=== PATIENT | female | born 1965 | race African-American/Black ===

== ENCOUNTER 2022-09-09 11:06 | Inpatient (IN) | payer BC, OTHER ==
[~2022-09-09] VITALS: Ht 157.5 cm; Wt 51.6 kg
[2022-09-09 13:27] LABS: Basophils # (auto) 0 10 ^3/uL (0-0.2); Eosinophils # (auto) 0 10 ^3/uL (0-0.8); Eosinophils % (auto) 0.5 % (0.0-7.0); Hemoglobin 20.4 g/dL (12.2-16.2); Monocytes # (auto) 0.7 10 ^3/uL (0-1.3)
[2022-09-09 13:30] LABS: Basophils % (auto) 0.7 % (0.0-2.0); Lymphocytes # (auto) 1.8 10 ^3/uL (0.4-5.4); Lymphocytes % (auto) 37.6 % (10.0-50.0); Mean Corpuscular Hgb Conc. 33.6 g/dL (32.0-36.0); Mean Corpuscular Volume 104.2 fL (80.0-100.0); Monocytes % (auto) 14.1 % (0.0-12.0); Neutrophils # (auto) 2.3 10 ^3/uL (1.6-8.6); Neutrophils % (auto) 47.1 % (37.0-80.0); Nucleated Red Blood Cells % 0.5 %; Red Blood Cells 5.83 10^6/uL (4.0-5.20); Red Cell Distribution Width 14.7 % (11.8-14.3); White Blood Cell 4.8 10^3/uL (4.4-10.8)
[2022-09-09 13:32] LABS: Hematocrit 60.8 % (36.0-46.0)
[2022-09-09 13:37] LABS: INR 1.32 (0.9-1.15); Partial Thromboplastin Time 30.1 sec (24.6-33.4)
[2022-09-09] MEDS ORDERED: hydrALAZINE HCL 20 MG/ML VL IV ONE (13:45)
[2022-09-09] MEDS ORDERED: FUROSEMIDE 20 MG/2 ML VIAL IV ONE (13:45)
[2022-09-09 13:47] LABS: Potassium 4.3 mmol/L (3.5-5.1)
[2022-09-09 13:53] LABS: Albumin 3.2 g/dL (3.4-5.0); BUN/Creatinine Ratio 22.6 (10.0-20.0); Bilirubin, Total 0.5 mg/dL (0.2-1.0); Calcium 8.5 mg/dL (8.5-10.1); Magnesium 2.2 mg/dL (1.6-2.6); Total Protein 6.1 g/dL (6.4-8.2)
[2022-09-09] MEDS ORDERED: ASPirin 325 MG TAB PO ONE (14:00)
[2022-09-09 14:21] LABS: Urine Bacteria NONE SEEN /hpf (None Seen); Urine Blood 1+ /uL (Negative); Urine Hyaline Cast FEW /lpf (0 - 2); Urine Specific Gravity 1.012 (1.001-1.035); Urine WBC 1 /hpf (0 - 5)
[2022-09-09] MEDS ORDERED: ACETAMINOPHEN 325 MG TAB PO PRN (17:45)
[2022-09-09] MEDS ORDERED: amLODIPine BESYLATE 5 MG TAB PO ONE (17:45)
[2022-09-09] MEDS ORDERED: NITROGLYCERIN 0.4 MG SL TAB SL PRN (17:45)
[2022-09-09] MEDS ORDERED: hydrALAZINE HCL 20 MG/ML VL IV PRN (17:45)
[2022-09-09] MEDS ORDERED: MORPHINE SULFATE INJ 2 MG/ml SYRG IV PRN (17:45)
[2022-09-09 18:29] LABS: Cholesterol 113 mg/dL (< 200); Triglycerides 52 mg/dL (< 150)
[2022-09-09] MEDS ORDERED: ALBUTEROL SULF 2.5 MG/0.5ML(0.5%) NEB SOLN NEB PRN (18:30)
[2022-09-09 18:32] LABS: HDL Cholesterol 51 mg/dL (40-59); LDL Cholesterol 67 mg/dL (< 100)
[2022-09-09 18:47] VITALS: BP 136/84
[2022-09-10] MEDS: ALBUTEROL SULF 2.5 MG/0.5ML(0.5%) NEB SOLN NEB SCH ×5 (00:14→18:36)
[2022-09-10] MEDS: IPRATROPIUM BROM 0.5 MG/2.5ML INH SOL NEB SCH ×5 (00:15→18:37)
[2022-09-10 05:00] VITALS: BP 142/74
[2022-09-10 08:10] VITALS: BP 136/77
[2022-09-10 08:30] VITALS: BP 136/77
[2022-09-10 08:46] LABS: Basophils # (auto) 0 10 ^3/uL (0-0.2); Basophils % (auto) 0.7 % (0.0-2.0); Eosinophils # (auto) 0 10 ^3/uL (0-0.8); Hemoglobin 19.7 g/dL (12.2-16.2); Lymphocytes # (auto) 1.3 10 ^3/uL (0.4-5.4); Monocytes # (auto) 0.8 10 ^3/uL (0-1.3); Neutrophils # (auto) 2.5 10 ^3/uL (1.6-8.6); Nucleated Red Blood Cells % 0.2 %
[2022-09-10 08:47] LABS: Eosinophils % (auto) 0.4 % (0.0-7.0); Lymphocytes % (auto) 27.2 % (10.0-50.0); Mean Corpuscular Hemoglobin 35.3 pg (28.0-32.0); Mean Corpuscular Hgb Conc. 33.7 g/dL (32.0-36.0); Mean Corpuscular Volume 104.9 fL (80.0-100.0); Monocytes % (auto) 16.7 % (0.0-12.0); Red Blood Cells 5.59 10^6/uL (4.0-5.20); Red Cell Distribution Width 14.7 % (11.8-14.3); White Blood Cell 4.6 10^3/uL (4.4-10.8)
[2022-09-10 08:52] LABS: Hematocrit 58.6 % (36.0-46.0)
[2022-09-10 10:18] LABS: Potassium 4.4 mmol/L (3.5-5.1)
[2022-09-10 10:19] LABS: BUN/Creatinine Ratio 23.5 (10.0-20.0)
[2022-09-10 10:21] LABS: Albumin 2.6 g/dL (3.4-5.0); Bilirubin, Total 0.7 mg/dL (0.2-1.0); Calcium 8.1 mg/dL (8.5-10.1)
[2022-09-10] MEDS: FUROSEMIDE 20 MG/2 ML VIAL IV SCH (10:23)
[2022-09-10] MEDS: amLODIPine BESYLATE 5 MG TAB PO SCH (10:23)
[2022-09-10] MEDS: ENOXAPARIN SOD 40 MG/0.4 ML SYRINGE SC SCH (10:24)
[2022-09-10 12:30] VITALS: BP 149/91
[2022-09-10] MEDS ORDERED: IOHEXOL 350 MG/ML 100ML IJ ONE (15:40)
[2022-09-10 16:58] VITALS: BP 111/62
[2022-09-10 22:00] VITALS: BP 133/78
[2022-09-11] MEDS: ALBUTEROL SULF 2.5 MG/0.5ML(0.5%) NEB SOLN NEB SCH ×5 (00:48→23:20)
[2022-09-11] MEDS: IPRATROPIUM BROM 0.5 MG/2.5ML INH SOL NEB SCH ×5 (00:48→23:21)
[2022-09-11 05:00] VITALS: BP 120/70
[2022-09-11 07:55] VITALS: BP 131/71
[2022-09-11 09:00] VITALS: BP 131/71
[2022-09-11] MEDS: FUROSEMIDE 20 MG/2 ML VIAL IV SCH (09:46)
[2022-09-11] MEDS: amLODIPine BESYLATE 5 MG TAB PO SCH (09:47)
[2022-09-11] MEDS: ENOXAPARIN SOD 40 MG/0.4 ML SYRINGE SC SCH (09:47)
[2022-09-11 15:33] LABS: Amphetamine Screen, Urine NEGATIVE (NEGATIVE); Barbiturate Scree,Urine NEGATIVE (NEGATIVE); Benzodiazephine Screen, Urine NEGATIVE (NEGATIVE); Cannabinoid Screen, Urine POSITIVE (NEGATIVE)
[2022-09-11 15:40] LABS: Cocaine Screen, Urine NEGATIVE (NEGATIVE); Opiate Scree,Urine NEGATIVE (NEGATIVE); Phencyclidine Screen, Urine NEGATIVE (NEGATIVE)
[2022-09-11 16:42] VITALS: BP 123/63
[2022-09-11 22:00] VITALS: BP 112/67
[2022-09-12 05:00] VITALS: BP 127/71
[2022-09-12] MEDS: IPRATROPIUM BROM 0.5 MG/2.5ML INH SOL NEB SCH ×2 (06:25→13:12)
[2022-09-12] MEDS: ALBUTEROL SULF 2.5 MG/0.5ML(0.5%) NEB SOLN NEB SCH ×2 (06:25→13:12)
[2022-09-12 08:15] VITALS: BP 121/75
[2022-09-12 08:30] VITALS: BP 121/75
[2022-09-12] MEDS ORDERED: METOPROLOL SUCCINATE XL 50 MG TAB PO SCH (10:00)
[2022-09-12] MEDS ORDERED: LOSARTAN POTASSIUM 25 MG TAB PO SCH (10:00)
[2022-09-12] MEDS: FUROSEMIDE 20 MG/2 ML VIAL IV SCH (10:08)
[2022-09-12] MEDS ORDERED: METO25TA36 PO (11:59)
[2022-09-12] MEDS ORDERED: FURO1TAB33 PO (11:59)
[2022-09-12] MEDS ORDERED: LOSA25TA2 PO (11:59)
[2022-09-12 13:01] VITALS: BP 150/93
== END 2022-09-12 13:53 | disposition home or self-care (01) | DRG 280 ==
LOC: EDBD 11:06 → ER 11:06 → TELE 17:51 → TELE-WESTW 09-10 02:35
PROVIDERS: ADMIT Nurse Practitioner Family; ATTEND Nurse Practitioner Acute Care
DX: I21.4 Non-ST elevation (NSTEMI) myocardial infarction (principal); J96.01 Acute respiratory failure with hypoxia; I16.1 Hypertensive emergency; I50.40 Unspecified combined systolic (congestive) and diastolic (congestive) heart failure; F17.210 Nicotine dependence, cigarettes, uncomplicated; I11.0 Hypertensive heart disease with heart failure; I24.9 Acute ischemic heart disease, unspecified; Z20.822 Contact with and (suspected) exposure to COVID-19; Z82.49 Family history of ischemic heart disease and other diseases of the circulatory system
CPT/HCPCS: 36415; 71045; 71275; 80053; 80061; 80307; 81001; 83735; 83880; 84443; 84484; 85025; 85379; 85610; 85730; 87426; 93005; 93306; 94640; G0378